=== PATIENT | male | born 1985 | race Caucasian/White ===

== ENCOUNTER 2017-04-02 19:29 | Emergency (ER) | payer SELFPAY ==
--- NOTE | ~2017-04-02 | ER ---
PATIENT'S NAME: SINDHU LAYTON [facility] AGE: 31 Y [address] ROOM: [place] [address] LOCATION: ED ADMIT DATE: 04/02/2017 ER/Outpatient Report DISCHARGE DATE: 04/02/2017 FAMILY PHYSICIAN: Physician, Unknown ATTENDING PHYSICIAN: Stef Lea Time of Arrival: 1930 hours. Time of Evaluation: 1936 hours. CHIEF COMPLAINT: Shortness of breath. HISTORY OF PRESENT ILLNESS: The patient states he has been having shortness of breath for the last month. Two weeks ago, he was seen in [facility] and diagnosed with walking pneumonia. He was started on azithromycin and prednisone. He took that for a week and was not feeling any better, so he was switched to Levaquin. He has now been on that for about 5 days and is still not feeling any better, and was concerned as he has only 2 doses left and still does not feel better, so he decided to come to the emergency room. The patient states he has a history of asthma for which he only takes an albuterol inhaler. He has been taking it every 4 hours for the past week; however, he has not used his albuterol inhaler today. He states that he has had fevers and chills; however, he is afebrile here today. He denies feelings of lightheadedness or blurry vision. He denies chest pain. He denies any diarrhea, GI upset, or abdominal pain. He also states he has a history of hypertension for which he recently started taking lisinopril for. PAST MEDICAL HISTORY: Asthma, hypertension, and walking pneumonia diagnosed 2 weeks ago. SOCIAL HISTORY: The patient admits to currently smoking about a half a pack a day, and states he seldom drinks alcohol, and denies drugs. MEDICATIONS: 1. Levaquin. 2. Lisinopril. 3. Albuterol inhaler. ALLERGIES: NO KNOWN DRUG ALLERGIES. REVIEW OF SYSTEMS: All systems were reviewed by me and were negative with the exception of those PATIENT'S NAME: SINDHU LAYTON [facility] AGE: 31 Y [address] ROOM: [place] [address] LOCATION: ED ADMIT DATE: 04/02/2017 ER/Outpatient Report DISCHARGE DATE: 04/02/2017 FAMILY PHYSICIAN: Physician, Unknown ATTENDING PHYSICIAN: Stef Lea discussed in the HPI. PHYSICAL EXAMINATION: VITALS: Weight of 154 kg. Blood pressure initially was 104/65; however, repeat later was 210/105. Pulse of 120. Respiratory rate of 20. Temperature 98. Saturating 95% on room air. GENERAL: The patient was alert and oriented x3. Shows increased work of breathing and is coughing. HEAD AND NECK: Pupils are equal and reactive to light. Extraocular movements are intact. No adenopathy appreciated. CARDIOVASCULAR: He is tachycardic but regular. No murmurs appreciated. CHEST: Diffuse expiratory wheezes bilaterally. Prolonged expiratory phase. ABDOMEN: Soft, nontender. Bowel sounds normal. LABORATORY DATA AND X-RAYS: Two-view chest x-ray, no acute cardiopulmonary process appreciated. IMPRESSION: Acute asthma exacerbation. EMERGENCY DEPARTMENT COURSE: Full history and physical were taken. The patient was given 3 DuoNebs, after which he felt significantly better. His cough had largely resolved, and his lungs sounded much improved, but still had mild diffuse wheezes. His chest x- ray did not show any acute cardiopulmonary process lowering concern for ongoing pneumonia. Suspect with recent respiratory illness, the patient's asthma has flared, and he will need more aggressive therapy over the next couple of weeks to get ahead of this. The patient is also ongoing smoker. He was counselled to quit smoking as this is not helping his asthma in any way, shape, or form. DISPOSITION: The patient was discharged to home with his girlfriend in good condition. He was given a script for prednisone taper to which he will take 60 mg for 4 days, 40 mg for 4 days, 20 mg for 4 days, and 10 mg for 4 days. He was also given albuterol nebs and counselled to finish out his Levaquin. He will also follow up with his clinic at [place] in the next 2 to 3 days, and he will also try to quit smoking. ALBERT PÉREZ MD FOR STEF LEA, DO KV/modl PATIENT'S NAME: SINDHU LAYTON [facility] AGE: 31 Y [address] ROOM: [place], [place] [address] LOCATION: [facility] ADMIT DATE: 04/02/2017 ER/Outpatient Report DISCHARGE DATE: 04/02/2017 FAMILY PHYSICIAN: Physician, Unknown ATTENDING PHYSICIAN: Stef Lea /[id number] ATTENDING ADDENDUM: I saw and evaluated the patient. I have discussed with the resident, agree with the resident's findings and plan and agree with the documented note above. STEF LEA DO d: 04/03/17 0135 t: 04/05/17 0647, OUTPATIENT REPORT
[~2017-04-02 19:29] MED LIST: ADVIL200 M2 PO; HYDRODIURIL25 MG PO; LEVAQUIN 750 M750 MG PO; NORVASC10 MG PO; PROZAC20 MG PO; TENEX1 MG PO
== END 2017-04-02 20:31 | disposition disaster alternative care site (69) ==
LOC: GMED 19:29
DX: J45.901 Unspecified asthma with (acute) exacerbation (principal); I10 Essential (primary) hypertension; F17.210 Nicotine dependence, cigarettes, uncomplicated; R00.0 Tachycardia, unspecified; Z79.899 Other long term (current) drug therapy
CPT/HCPCS: J2930